=== PATIENT | female | born 1980 | race Two or more races ===

== ENCOUNTER 2022-05-10 17:59 | Emergency (ER) | payer OTHER ==
[~2022-05-10] VITALS: Ht 152.4 cm; Wt 55.3 kg
[2022-05-10] MEDS ORDERED: BUPROPION XL150 MG PO (22:49)
[2022-05-10] MEDS ORDERED: CLONAZEPAM2 MG PO (22:49)
== END 2022-05-10 23:03 | disposition home or self-care (01) ==
LOC: ER 17:59
DX: J45.909 Unspecified asthma, uncomplicated (principal); J10.1 Influenza due to other identified influenza virus with other respiratory manifestations; Z91.018 Allergy to other foods